=== PATIENT | male | born 2000 | race Caucasian/White ===

== ENCOUNTER 2025-09-23 20:43 | Emergency (ER) | payer OTHER ==
[~2025-09-23] VITALS: Ht 185.4 cm; Wt 115.9 kg
[2025-09-23] MEDS ORDERED: PRED20TA PO (23:27)
[2025-09-23] MEDS ORDERED: IBUP80TA PO (23:27)
[2025-09-23] MEDS ORDERED: CYCL-707 PO (23:27)
[2025-09-23 23:45] VITALS: BP 126/80; TEMP 97.9; O2SAT 97
[2025-09-23] MEDS: predniSONE 20 MG TAB PO ONE (23:45)
[2025-09-23] MEDS: IBUPROFEN 800 MG TAB PO ONE (23:47)
== END 2025-09-23 23:55 | disposition home or self-care (01) ==
LOC: M ED 20:43
DX: S33.5XXA Sprain of ligaments of lumbar spine, initial encounter (principal); V47.0XXA Car driver injured in collision with fixed or stationary object in nontraffic accident, initial encounter; Z79.52 Long term (current) use of systemic steroids; Z79.1 Long term (current) use of non-steroidal anti-inflammatories (NSAID); Z79.899 Other long term (current) drug therapy; Y92.410 Unspecified street and highway as the place of occurrence of the external cause; Y93.89 Activity, other specified; Y99.9 Unspecified external cause status
CPT/HCPCS: 70450; 72125; 72131; 99284; J7512